=== PATIENT | female | born 1965 | race Caucasian/White ===

== ENCOUNTER → 2018-03-08 | Outpatient (CLI) | payer BC ==
[~2018-03-08] MED LIST: NORCO 325 MG-51 TAB PO; ZOFRAN 4MG T4 MG/TAB PO
== END ==
LOC: MC.RAD 07:26
DX: Z12.31 Encounter for screening mammogram for malignant neoplasm of breast (principal)

== ENCOUNTER → 2018-07-02 | Outpatient (CLI) | payer BC ==
[2018-07-02 14:52] LABS: THYROID STIMULATING HORMONE 0.678 uIU/mL (0.465-4.680)
== END ==
LOC: COL.LAB 13:36
PROVIDERS: Internal Medicine Endocrinology, Diabetes & Metabolism
DX: E03.9 Hypothyroidism, unspecified (principal)

== ENCOUNTER 2019-11-10 23:57 | Emergency (ER) | payer BC ==
[~2019-11-10] VITALS: Ht 162.6 cm; Wt 104.5 kg
[2019-11-11] MEDS ORDERED: MOBIC 7.5MG7.5 MG PO (01:23)
[2019-11-11] MEDS ORDERED: FLEXERIL 1010 MG/TAB PO (01:23)
[2019-11-11] MEDS ORDERED: VOLTAREN 75 DR75 MG PO (02:55)
[2019-11-11] MEDS ORDERED: VALIUM 2MG T2 MG/TAB PO (02:55)
[2019-11-11 03:00] VITALS: BP 152/72; PULSE 68; TEMP 98.4
== END 2019-11-11 03:06 | disposition home or self-care (01) ==
LOC: COL.ER 23:57
DX: M54.5 Low back pain (principal); M62.830 Muscle spasm of back
CPT/HCPCS: J1885; J2930; J3360; J7040

== ENCOUNTER → 2020-03-09 | Outpatient (CLI) | payer BC ==
[~2020-03-09] MED LIST changes: +FLEXERIL 1010 MG/TAB PO; +MOBIC 7.5MG7.5 MG PO; +VALIUM 2MG T2 MG/TAB PO; +VOLTAREN 75 DR75 MG PO
== END ==
LOC: MC.RAD 02-05 16:45
DX: Z12.31 Encounter for screening mammogram for malignant neoplasm of breast (principal)

== ENCOUNTER 2020-08-01 18:39 | Emergency (ER) | payer BC ==
[~2020-08-01] VITALS: Ht 165.1 cm; Wt 100.0 kg
[2020-08-01 18:50] VITALS: BP 109/77; TEMP 98.2
[2020-08-01] MEDS ORDERED: EFFEXOR 3737.5 MG/TA PO (19:20)
[2020-08-01] MEDS ORDERED: ULTRAM 50MG TAB50 MG PO (19:21)
[2020-08-01 19:22] LABS: BASO % 0.6 % (0.0-2.0); EOS # 0.1 (0.0-0.7); EOS % 2.1 % (0-4.0); GRAN # 3.9 (1.4-6.5); GRAN % 58.5 % (42.2-75.2); HEMOGLOBIN 13.3 g/dl (12.5-16.0); LYMPH # 2.3 (1.2-3.4); LYMPH % 33.8 % (20.0-51.0); MEAN CELL VOLUME 89 fl (80.0-100.0); MEAN CORPUSCULAR HEMOGLOBIN 30 pg (27.0-31.0); MEAN CORPUSCULAR HGB CONC 33 g/dl (33.0-37.0); MEAN PLATELET VOLUME 9.7 fl (7.4-10.4); MONO # 0.3 (0.1-0.6); MONO % 4.5 % (1.7-9.3); PLATELET COUNT 285 K/mm3 (130-400); RED BLOOD COUNT 4.51 M/mm3 (4.10-5.30); REDCELL DISTRIBUTION WIDTH-CV 12.5 % (11.5-14.5)
[2020-08-01] MEDS ORDERED: PRILOSEC 20MG20 MG PO (19:22)
[2020-08-01] MEDS ORDERED: ZETIA 10MG TAB10 MG PO (19:22)
[2020-08-01] MEDS ORDERED: SYNTHROID0.112 MG/T PO (19:23)
[2020-08-01] MEDS ORDERED: MAGNESIUM250 M1 PO (19:24)
[2020-08-01] MEDS ORDERED: CALCIUM WITH D31 CTB (19:24)
[2020-08-01] MEDS ORDERED: PROBIOTIC ACID1 EAC3 PO (19:24)
[2020-08-01] MEDS ORDERED: ONE-A-DAY ESSE1 EACH PO (19:24)
[2020-08-01] MEDS ORDERED: LUTEIN20 M1 PO (19:25)
[2020-08-01 19:33] LABS: ALBUMIN 4.6 gm/dL (3.5-5.0); BILIRUBIN,TOTAL 0.3 mg/dL (0.0-1.0); C-REACTIVE PROTEIN 1.4 mg/dL (0.0-0.9); CREATININE, serum 0.79 (0.52-1.25); POTASSIUM 4.2 mmol/L (3.4-5.0); TOTAL PROTEIN 7.9 gm/dL (6.4-8.2)
[2020-08-01 19:50] LABS: COLLECTION METHOD CLEAN CATCH
[2020-08-01 20:06] LABS: MUCOUS Present /lpf; PH 5 (5-8); SQUAMOUS EPITHELIAL 0-2 /hpf; URINE APPEARANCE Hazy; URINE BACTERIA Rare /hpf; URINE BILIRUBIN Negative (NEGATIVE); URINE BLOOD Negative (NEGATIVE); URINE COLOR Yellow; URINE GLUCOSE Negative (NEGATIVE); URINE KETONE Negative (NEGATIVE); URINE LEUKOCYTE ESTERASE Trace (NEGATIVE); URINE NITRATE Negative (NEGATIVE); URINE PROTEIN(semi-quant) Negative (NEGATIVE); URINE RBC 0-2 /hpf
[2020-08-01] MEDS ORDERED: NORCO 325 MG-51 TAB PO (21:49)
[2020-08-01 22:10] VITALS: PULSE 77
== END 2020-08-01 22:10 | disposition home or self-care (01) ==
LOC: COL.ER 18:39
PROVIDERS: Emergency Medicine
DX: M54.5 Low back pain (principal); R10.9 Unspecified abdominal pain; R11.0 Nausea; R63.0 Anorexia; Z84.1 Family history of disorders of kidney and ureter
CPT/HCPCS: J1885; J2060; J2405; J3010; J7030; Q9967

== ENCOUNTER 2020-10-19 08:28 | Emergency (ER) | payer BC ==
[~2020-10-19] VITALS: Ht 165.1 cm; Wt 100.0 kg
[~2020-10-19 08:28] MED LIST changes: +CALCIUM WITH D31 CTB; +EFFEXOR 3737.5 MG/TA PO; +LUTEIN20 M1 PO; +MAGNESIUM250 M1 PO; +ONE-A-DAY ESSE1 EACH PO; +PRILOSEC 20MG20 MG PO; +PROBIOTIC ACID1 EAC3 PO; +SYNTHROID0.112 MG/T PO; +ULTRAM 50MG TAB50 MG PO; +ZETIA 10MG TAB10 MG PO
[2020-10-19 10:16] LABS: BASO % 0.3 % (0.0-2.0); EOS % 0.3 % (0-4.0); GRAN # 2.2 (1.4-6.5); GRAN % 67.7 % (42.2-75.2); HEMOGLOBIN 13.5 g/dl (12.5-16.0); LYMPH # 0.7 (1.2-3.4); LYMPH % 20.4 % (20.0-51.0); MEAN CELL VOLUME 87 fl (80.0-100.0); MEAN CORPUSCULAR HEMOGLOBIN 29 pg (27.0-31.0); MEAN CORPUSCULAR HGB CONC 33 g/dl (33.0-37.0); MEAN PLATELET VOLUME 9.8 fl (7.4-10.4); MONO # 0.4 (0.1-0.6); PLATELET COUNT 190 K/mm3 (130-400); RED BLOOD COUNT 4.69 M/mm3 (4.10-5.30); REDCELL DISTRIBUTION WIDTH-CV 12.3 % (11.5-14.5)
[2020-10-19 10:23] LABS: ALBUMIN 4.4 gm/dL (3.5-5.0); BILIRUBIN,TOTAL 0.5 mg/dL (0.0-1.0); CALCIUM 9.1 mg/dL (8.4-10.2); CREATININE, serum 0.74 (0.52-1.25); POTASSIUM 3.8 mmol/L (3.4-5.0); TOTAL PROTEIN 7.8 gm/dL (6.4-8.2)
[2020-10-19 11:08] VITALS: BP 140/86; PULSE 82
== END 2020-10-19 11:10 | disposition home or self-care (01) ==
LOC: COL.ER 08:28
PROVIDERS: Emergency Medicine
DX: U07.1 COVID-19 (principal); Z88.2 Allergy status to sulfonamides
CPT/HCPCS: J1200; J1885; J2765; J7030

== ENCOUNTER 2020-11-01 18:08 | Emergency (ER) | payer BC ==
[~2020-11-01] VITALS: Ht 165.1 cm; Wt 96.4 kg
[2020-11-01 18:13] VITALS: TEMP 98.3
[2020-11-01 18:59] LABS: COLLECTION METHOD CLEAN CATCH
[2020-11-01 19:05] LABS: BASO % 0.4 % (0.0-2.0); EOS # 0.1 (0.0-0.7); EOS % 1.3 % (0-4.0); GRAN # 3.3 (1.4-6.5); GRAN % 61.5 % (42.2-75.2); HEMATOCRIT 40.4 % (37.0-47.0); HEMOGLOBIN 13.2 g/dl (12.5-16.0); LYMPH # 1.6 (1.2-3.4); LYMPH % 29.5 % (20.0-51.0); MEAN CELL VOLUME 88 fl (80.0-100.0); MEAN CORPUSCULAR HEMOGLOBIN 29 pg (27.0-31.0); MEAN CORPUSCULAR HGB CONC 33 g/dl (33.0-37.0); MEAN PLATELET VOLUME 9.5 fl (7.4-10.4); MONO # 0.4 (0.1-0.6); MONO % 6.9 % (1.7-9.3); PLATELET COUNT 289 K/mm3 (130-400); RED BLOOD COUNT 4.61 M/mm3 (4.10-5.30); REDCELL DISTRIBUTION WIDTH-CV 12.4 % (11.5-14.5)
[2020-11-01 19:07] LABS: MUCOUS Present /lpf; PH 7 (5-8); SQUAMOUS EPITHELIAL 0-2 /hpf; URINE APPEARANCE Clear; URINE BACTERIA Rare /hpf; URINE BILIRUBIN Negative (NEGATIVE); URINE BLOOD Negative (NEGATIVE); URINE COLOR Straw; URINE GLUCOSE Negative (NEGATIVE); URINE KETONE Negative (NEGATIVE); URINE LEUKOCYTE ESTERASE Negative (NEGATIVE); URINE NITRATE Negative (NEGATIVE); URINE PROTEIN(semi-quant) Negative (NEGATIVE); URINE RBC 0-2 /hpf; URINE UROBILINOGEN Negative (NEGATIVE)
[2020-11-01 19:34] LABS: ALANINE AMINOTRANSFERASE 37 U/L (4-34); ALBUMIN 4.1 gm/dL (3.5-5.0); ALKALINE PHOSPHATASE 69 U/L (50-136); ANION GAP 11 mmol/L (7-16); AST,SGOT 30 U/L (15-37); BILIRUBIN,TOTAL 0.5 mg/dL (0.0-1.0); BLOOD UREA NITROGEN 8 mg/dL (7-17); CALCIUM 9.4 mg/dL (8.4-10.2); CARBON DIOXIDE 26 mmol/L (22-30); CHLORIDE 103 mmol/L (98-107); CREATININE, serum 0.75 (0.52-1.25); GLUCOSE 113 mg/dL (74-106); LIPASE 169 U/L (23-300); POTASSIUM 3.2 mmol/L (3.4-5.0); SODIUM 140 mmol/L (137-145); TOTAL PROTEIN 7.2 gm/dL (6.4-8.2)
[2020-11-01 19:36] LABS: C-REACTIVE PROTEIN < 0.5 mg/dL (0.0-0.9)
[2020-11-01 19:53] VITALS: BP 152/93; PULSE 85
== END 2020-11-01 19:52 | disposition home or self-care (01) ==
LOC: COL.ER 18:08
PROVIDERS: Nurse Practitioner Primary Care
DX: F41.9 Anxiety disorder, unspecified (principal); R19.7 Diarrhea, unspecified; R10.84 Generalized abdominal pain; E78.5 Hyperlipidemia, unspecified; K21.9 Gastro-esophageal reflux disease without esophagitis; E03.9 Hypothyroidism, unspecified; Z90.710 Acquired absence of both cervix and uterus; Z88.2 Allergy status to sulfonamides; Z88.6 Allergy status to analgesic agent; Z79.890 Hormone replacement therapy
CPT/HCPCS: J0780; J7030

== ENCOUNTER → 2022-04-04 | Outpatient (CLI) | payer BC | LOC: MC.RAD 07:20 | DX: Z12.31 Encounter for screening mammogram for malignant neoplasm of breast (principal) ==

== ENCOUNTER → 2024-05-01 | Outpatient (CLI) | payer BC ==
[~2024-05-01] MED LIST changes: +ATARAX 25MG25 MG/TAB PO; +ATIVAN 0.50.5 MG/TAB PO; +PRAVACHOL 40MG40 MG PO
== END ==
LOC: MC.RAD 07:40
DX: Z12.31 Encounter for screening mammogram for malignant neoplasm of breast (principal)